=== PATIENT | female | born 1935 | race Caucasian/White ===

== ENCOUNTER 2017-12-14 21:33 | Emergency (ER) | payer MEDICARE ==
[~2017-12-14] VITALS: Ht 149.9 cm; Wt 43.5 kg
[~2017-12-14 21:33] MED LIST: ALL DAY ALLERGY10 M1 PO; ASPIRIN LOW DOS81 MG PO; BENADRYL25 M1 PO; BENZONATATE100 MG PO; CALCIUM CARBON600 M1 PO; CARAFATE1 GM/10 ML PO; CEFUROXIME250 MG PO; CHLORPHENIRAMINE PO; DEXILANT60 MG PO; DOCUSATE SODIU100 MG PO; HYDROCODON-ACE1 EA11 PO; KEPPRA500 MG PO; LEVAQUIN250 MG PO; LEVOXYL88 MCG PEG; LOVENOX60 MG/0.6 SC; MUCINEX DM ER1 EACH PO; NATURAL BALANCE15 ML OU; OYSTER SHELL C1 EACH PO; PANTOPRAZOLE SO40 MG PO; SUCRALFATE1 GM PO; ULTRAM50 MG PO; VITRUM SENIOR1 EAC1; XANAX1 MG PO; Z.0.ALENDRONATE SOD7 PO; Z.0.ALPRAZOLAM1 MG PO; Z.0.FLUTICASONE PRO1 NS; Z.0.LEVOTHYROXINE88 PO; Z.0.LOVASTATIN20 MG PO; Z.0.NEXIUM40 MG PO; Z.0.SUCRALFATE1 GM PO; ZYRTEC10 MG PO; [UNRECOGNIZED DRUG - REMARK] PO
--- OUTSIDE RECORDS SUMMARY | 2017-12-14 21:35 | XMS REPORT ---
[facility] Address Unknown Phone Unavailable Care Team Providers Care Billing Assistant Name Role Phone ALEXIA ANN Unavailable Unavailable Problems This patient has no known problems. Allergies, Adverse Reactions, Alerts This patient has no known allergies or adverse reactions. Medications This patient has no known medications. Results Test Description Test Time Test Comments Text Results Atomic Results Result Comments CT BRAIN WO [place] [address] Patient Name: CHONG MEDEIROS MR #: [id number] : 1935 Age/Sex: 82/F Req #: [id number] Adm Physician: Ordered by: ALEXIA ANN MD Report #: [id number] Location: ER Room/Bed: Procedure: [id number] CT/CT BRAIN WO Exam Date: 05/30/17 Exam Time: 1045 REPORT STATUS: Signed Exam: Head CT without contrast History: Head CT 11/11/2016 Comparison studies: None Technique: Axial images were obtained from the skull base to the vertex. Coronal and sagittal images reconstructed from the axial data. Intravenous contrast: None Findings: Scalp: Midline occipital scalp hematoma with underlying subcutaneous gas presumably related to laceration. No retained hyperdense foreign body identified. Bones: No fractures, blastic or lytic lesions. Brain sulci : Within normal limits for age. Ventricles: Normal in size and configuration. No hydrocephalus. Extra-axial spaces: No masses, no fluid collection. Previous bilateral frontal parietal subdural fluid collections have resolved. Parenchyma: No mass, acute hemorrhage or acute or chronic cortical vascular insults. A few scattered ill-defined and mildly confluent hypodensities in the supratentorial white matter are most compatible with chronic small vessel ischemic changes. Sellar/suprasellar region: No abnormalities. Craniocervical junction: Patent foramen magnum. No Chiari one malformation. Incidental findings: Atherosclerotic calcifications in the carotid siphons. Unchanged nonspecific left sphenoid and posterior left ethmoid opacification. IMPRESSION: 1. Occipital scalp hematoma/ laceration without underlying fracture or hyperdense foreign body. 2. No acute intracranial abnormalities. 3. Previous subdural fluid collections have resolved. 4. No other changes from the previous head CT of 11/21. 5. Mild to moderate chronic microvascular ischemic changes. Signed by: Dr. Ivone George M.D. on 05/30/2017 11:13 AM Dictated By: IVONE GEORGE MD 1113 Transcribed By: LILIAM on 05/30/17 1113 COPY TO: ALEXIA ANN MD
[2017-12-14] MEDS ORDERED: PANTOPRAZOLE 40 MG 10ML VIAL IV STA (22:07)
[2017-12-14] MEDS ORDERED: SODIUM CHLORIDE 0.9% 500ML 500 ML IV ONE (22:15)
[2017-12-14] MEDS ORDERED: ONDANSETRON HCL 4 MG ORAL DISINTEGRATING TAB PO ONE (22:15)
[2017-12-14 22:19] LABS: BASOPHILS % 0.6 % (0.0-1.0); EOSINOPHILS % 0.2 % (0.0-6.0); HEMATOCRIT 42.3 % (34.2-44.1); HEMOGLOBIN 13.5 g/dL (12.0-16.0); LYMPHOCYTES % 14.6 % (18.0-39.1); MEAN CORPUSCULAR HEMOGLOBIN 27.1 pg (28-32); MEAN CORPUSCULAR HGB CONC 31.9 g/dL (31-35); MEAN CORPUSCULAR VOLUME 84.8 fL (81-99); MONOCYTES # (AUTO) 0.3 (0.2-0.8); MONOCYTES % 4.6 % (4.4-11.3); NEUTROPHILS # (AUTO) 5.3 (2.1-6.9); NEUTROPHILS % 79.7 % (38.7-80.0); PLATELET COUNT 209 x10e3/uL (140-360); RED BLOOD COUNT 4.99 x10e6/uL (3.6-5.1); RED CELL DISTRIBUTION WIDTH 14.2 % (11.7-14.4)
[2017-12-14 22:40] LABS: ALANINE AMINOTRANSFERASE 10 IU/L (0-55); ALBUMIN 3.8 g/dL (3.5-5.0); ALBUMIN/GLOBULIN RATIO 0.9 (0.8-2.0); ALKALINE PHOSPHATASE 82 IU/L (40-150); ANION GAP 14.3 mmol/L (8-16); BLOOD UREA NITROGEN 12 mg/dL (7-26); BUN/CREATININE RATIO 18 (6-25); CARBON DIOXIDE 28 mmol/L (22-29); CHLORIDE 101 mmol/L (98-107); CREATINE KINASE 40 IU/L (29-168); CREATININE, SERUM 0.67 mg/dL (0.57-1.11); EST GLOMERULAR FILTRATION RATE > 60 ML/MIN (60-); GLUCOSE 126 mg/dL (74-118); POTASSIUM 4.3 mmol/L (3.5-5.1); SODIUM 139 mmol/L (136-145)
[2017-12-14 23:01] LABS: AMYLASE 67 U/L (25-125); LIPASE 14 U/L (8-78)
--- NOTE | 2017-12-14 23:08 | Diagnostic Imaging Report ---
EXAM: CHEST 2 VIEWS, PA and lateral INDICATION: Stomach problems COMPARISON: PA and lateral view of the chest October 28, 2012 FINDINGS: LINES/TUBES: None LUNGS: Stable emphysematous changes. PLEURA: No effusions or pneumothorax. HEART AND MEDIASTINUM: Normal size and contour. BONES AND SOFT TISSUES: No acute findings. Large hiatal hernia. IMPRESSION: No acute thoracic abnormality. Large hiatal hernia. Signed by: Dr. Randee Haynes M.D. on 12/14/2017 11:05 PM
[2017-12-14 23:58] LABS: BILIRUBIN,URINE NEGATIVE (NEGATIVE); CLARITY,URINE CLEAR (CLEAR); COLOR,URINE YELLOW (YELLOW); KETONES,URINE NEGATIVE (NEGATIVE); LEUKOCYTE ESTERASE ,URINE NEGATIVE (NEGATIVE); NITRITE,URINE NEGATIVE (NEGATIVE); PROTEIN,URINE DIPSTICK NEGATIVE (NEGATIVE); URINE UROBILINOGEN 0.2 mg/dL (0.2 - 1)
[2017-12-15 00:09] LABS: EPITHELIAL CELLS,URINE RARE /LPF; RBC,URINE 0-5 /HPF (0-5); WBC,URINE (MAN) 0-5 /HPF (0-5)
== END 2017-12-15 00:30 | disposition home or self-care (01) ==
LOC: ER 21:33
DX: K21.9 Gastro-esophageal reflux disease without esophagitis (principal); K44.9 Diaphragmatic hernia without obstruction or gangrene; J44.9 Chronic obstructive pulmonary disease, unspecified; R00.0 Tachycardia, unspecified
CPT/HCPCS: 36415; 71046; 80053; 81001; 82150; 82550; 82553; 83690; 84484; 85025; 93005; 99284; J7040

== ENCOUNTER 2018-11-20 05:09 | Inpatient (IN) | payer MEDICARE ==
[~2018-11-20] VITALS: Ht 149.9 cm; Wt 38.1 kg
--- OUTSIDE RECORDS SUMMARY | 2018-11-20 05:13 | XMS REPORT | Continuity of Care Document ---
Author Author [facility] Interface Address Unknown Phone Unavailable Problems Problem Status Onset Date Classification Date Reported Comments Source Medications Medication Details Route Status Patient Instructions Ordering Provider Order Date Source Dexlansoprazole (Dexilant) 60 Mg Cap., 60 Mg Oral Twice A Day Active 11/21/2016 [facility] Diphenhydramine Hcl (Benadryl) 25 Mg Capsule, 25 Mg Oral Four Times Daily Active 11/21/2016 [facility] Hydrocodone Bit/Acetaminophen (Hydrocodon-Acetaminophen 5-325) 1 Each Tablet, 1 Tab Oral As Needed Active 11/21/2016 [facility] Cetirizine Hcl (All Day Allergy Relief) 10 Mg Tablet, 10 Mg Oral Rt Daily Active 08/27/2015 [facility] Lovastatin 20 Mg Tablet, 20 Mg Oral Daily Active 08/27/2015 [facility] Cefuroxime Axetil (Cefuroxime) 250 Mg Tablet, 250 Mg Oral Twice A Day Active 08/15/2014 [facility] Dexlansoprazole (Dexilant) 60 Mg Minesh., 60 Mg Oral Twice A Day Active 08/15/2014 [facility] Sucralfate (Carafate) 1 Gm/10 Ml Oral.susp, 1 Gm Oral Before Meals And At Bedtime Active 08/15/2014 [facility] Alendronate Sodium 70 Mg Tablet, 70 Mg Oral Weekly Active 11/25/2013 [facility] Alprazolam (Xanax*) 1 Mg Tablet, 1 Mg Oral Daily Active 11/25/2013 [facility] Calcium Carbonate 600 Mg Tablet, 600 Mg Oral Twice A Day Active 11/25/2013 [facility] Alprazolam 1 Mg Tablet, 1 Mg Oral Every 8 Hours Active 10/28/2012 [facility] Cetirizine Hcl (Allergy) 10 Mg Tablet, 10 Mg Oral Daily Active 10/28/2012 [facility] Esomeprazole Mag Trihydrate (Nexium) 40 Mg Capsule.dr, 40 Mg Oral Twice A Day Active 10/28/2012 [facility] Fluticasone Propionate 16 Gm [place].susp, 16 Gm Nasal Daily Active 10/28/2012 [facility] Sucralfate 1 Gm Tablet, 2 Gm Oral As Needed Active 10/28/2012 [facility] Alprazolam (Xanax*) 1 Mg Tablet Bedtime Active [facility] Benzonatate 100 Mg Capsule Every 6 Hours as needed for Cough Active [facility] Calcium Carbonate/Vitamin D2 (Oyster Shell Calcium-Vit D Tab) 1 Each Tablet Twice A Day Active [facility] Clorpheniramine Every 8 Hours as needed for Allergy Active [facility] Docusate Sodium 100 Mg Capsule Every 12 Hours as needed for Constipation Active [facility] Enoxaparin Sodium (Lovenox) 60 Mg/0.6 Ml Inj Every 12 Hours Active [facility] Guaifenesin/Dextromethorphan (Mucinex Dm Er 600-30 Mg Tablet) 1 Each Tab.er.12h Every 12 Hours as needed for Nasal Congestion Active [facility] Hypromellose (Natural Balance Tears) 15 Ml Drops Three Times A Day Active [facility] Levetiracetam (Keppra) 500 Mg Tablet Every 12 Hours Active [facility] Levothyroxine Sodium 88 Mcg Tablet Daily Active [facility] Levothyroxine Sodium (Levoxyl) 88 Mcg Tablet Daily Active [facility] Multivitamin W-Minerals/Lutein (Vitrum Senior Tablet) 1 Each Tablet Daily Active [facility] Pantoprazole Sodium (Protonix) 40 Mg Tablet. Twice A Day Active [facility] Sucralfate 1 Gm Tablet Before Meals And At Bedtime Active [facility] Sucralfate (Carafate) 1 Gm/10 Ml Oral.susp Three Times A Day Active [facility] Tramadol Hcl (Ultram) 50 Mg Tablet Every 6 Hours as needed for Pain Active [facility] Allergies, Adverse Reactions, Alerts Substance Category Reaction Severity Reaction type Status Date Reported Comments Source Immunizations Immunization Date Given Site Status Last Updated Comments Source Results Order Name Results Value Reference Range Date Interpretation Comments Source Automated urine sediment leukocyte count by microscopy (number/high power field) Automated urine sediment leukocyte count by microscopy (number/high power field) null 0 - 5 12/14/2017 [facility] Bacteria detection in urine sediment by light microscopy Bacteria detection in urine sediment by light microscopy NONE NONE 12/14/2017 [facility] Epithelial cells detection in urine sediment by light microscopy Epithelial cells detection in urine sediment by light microscopy RARE NONE 12/14/2017 [facility] Erythrocytes detection in urine sediment by light microscopy Erythrocytes detection in urine sediment by light microscopy null 0 - 5 12/14/2017 [facility] Specific gravity of Urine by Test strip Specific gravity of Urine by Test strip 1.015 1.010 - 1.025 12/14/2017 [facility] Urine clarity Urine clarity CLEAR CLEAR 12/14/2017 [facility] Urine color determination Urine color determination YELLOW YELLOW 12/14/2017 [facility] Urine erythrocytes detection Urine erythrocytes detection TRACE NEGATIVE 12/14/2017 [facility] Urine glucose detection Urine glucose detection NEGATIVE NEGATIVE 12/14/2017 [facility] Urine ketones detection by automated test strip Urine ketones detection by automated test strip NEGATIVE NEGATIVE 12/14/2017 [facility] Urine leukocyte esterase detection by dipstick Urine leukocyte esterase detection by dipstick NEGATIVE NEGATIVE 12/14/2017 [facility] Urine nitrite detection Urine nitrite detection NEGATIVE NEGATIVE 12/14/2017 [facility] Urine pH measurement by automated test strip Urine pH measurement by automated test strip 7 5 - 7 12/14/2017 [facility] Urine protein measurement by test strip (mass/volume) Urine protein measurement by test strip (mass/volume) NEGATIVE NEGATIVE 12/14/2017 [facility] Urine total bilirubin measurement (mass/volume) Urine total bilirubin measurement (mass/volume) NEGATIVE NEGATIVE 12/14/2017 [facility] Urine urobilinogen measurement by test strip (mass/volume) Urine urobilinogen measurement by test strip (mass/volume) 0.2 0.2 - 1 12/14/2017 [facility] Automated blood basophil count (count/volume) Automated blood basophil count (count/volume) 0.0 0.0 - 0.1 12/14/2017 [facility] Automated blood basophil count as percentage of total leukocytes Automated blood basophil count as percentage of total leukocytes 0.6 0.0 - 1.0 12/14/2017 [facility] Automated blood eosinophil count Automated blood eosinophil count 0.0 0.0 - 0.4 12/14/2017 [facility] Automated blood eosinophil count as percentage of total leukocytes Automated blood eosinophil count as percentage of total leukocytes 0.2 0.0 - 6.0 12/14/2017 [facility] Automated blood hematocrit (volume fraction) Automated blood hematocrit (volume fraction) 42.3 34.2 - 44.1 12/14/2017 [facility] Automated blood lymphocyte count as percentage ot total leukocytes Automated blood lymphocyte count as percentage ot total leukocytes 14.6 18.0 - 39.1 12/14/2017 [facility] Automated blood monocyte count as percentage of total leukocytes Automated blood monocyte count as percentage of total leukocytes 4.6 4.4 - 11.3 12/14/2017 [facility] Automated blood neutrophil count Automated blood neutrophil count 5.3 2.1 - 6.9 12/14/2017 [facility] Automated blood platelet count (count/volume) Automated blood platelet count (count/volume) 209 140 - 360 12/14/2017 [facility] Automated blood segmented neutrophil count as percentage of total leukocytes Automated blood segmented neutrophil count as percentage of total leukocytes 79.7 38.7 - 80.0 12/14/2017 [facility] Automated erythrocyte mean corpuscular hemoglobin (mass per erythrocyte) Automated erythrocyte mean corpuscular hemoglobin (mass per erythrocyte) 27.1 28 - 32 12/14/2017 [facility] Automated erythrocyte mean corpuscular hemoglobin concentration measurement (mass/volume) Automated erythrocyte mean corpuscular hemoglobin concentration measurement (mass/volume) 31.9 31 - 35 12/14/2017 [facility] Automated erythrocyte mean corpuscular volume Automated erythrocyte mean corpuscular volume 84.8 81 - 99 12/14/2017 [facility] Blood erythrocytes automated count (number/volume) Blood erythrocytes automated count (number/volume) 4.99 3.6 - 5.1 12/14/2017 [facility] Blood hemoglobin measurement (moles/volume) Blood hemoglobin measurement (moles/volume) 13.5 12.0 - 16.0 12/14/2017 [facility] Blood leukocytes automated count (number/volume) Blood leukocytes automated count (number/volume) 6.58 4.8 - 10.8 12/14/2017 [facility] Blood lymphocytes count (number/volume) Blood lymphocytes count (number/volume) 1.0 1.0 - 3.2 12/14/2017 [facility] Blood monocytes automated count (number/volume) Blood monocytes automated count (number/volume) 0.3 0.2 - 0.8 12/14/2017 [facility] Estimated glomerular filtration rate (GFR) determination Estimated glomerular filtration rate (GFR) determination null 60 12/14/2017 [facility] Glucose measurement Glucose measurement 126 74 - 118 12/14/2017 [facility] Plasma globulin measurement (mass/volume) Plasma globulin measurement (mass/volume) 4.2 2.3 - 3.5 12/14/2017 [facility] Serum or plasma alanine aminotransferase measurement (enzymatic activity/volume) Serum or plasma alanine aminotransferase measurement (enzymatic activity/volume) 10 0 - 55 12/14/2017 [facility] Serum or plasma albumin measurement (mass/volume) Serum or plasma albumin measurement (mass/volume) 3.8 3.5 - 5.0 12/14/2017 [facility] Serum or plasma albumin/globulin mass ratio Serum or plasma albumin/globulin mass ratio 0.9 0.8 - 2.0 12/14/2017 [facility] Serum or plasma alkaline phosphatase measurement (enzymatic activity/volume) Serum or plasma alkaline phosphatase measurement (enzymatic activity/volume) 82 40 - 150 12/14/2017 [facility] Serum or plasma amylase measurement (enzymatic activity/volume) Serum or plasma amylase measurement (enzymatic activity/volume) 67 25 - 125 12/14/2017 [facility] Serum or plasma anion gap Serum or plasma anion gap 14.3 8 - 16 12/14/2017 [facility] Serum or plasma calcium measurement (mass/volume) Serum or plasma calcium measurement (mass/volume) 10.0 8.4 - 10.2 12/14/2017 [facility] Serum or plasma carbon dioxide, total measurement (moles/volume) Serum or plasma carbon dioxide, total measurement (moles/volume) 28 22 - 29 12/14/2017 [facility] Serum or plasma chloride measurement (moles/volume) Serum or plasma chloride measurement (moles/volume) 101 98 - 107 12/14/2017 [facility] Serum or plasma creatine kinase MB measurement (mass/volume) Serum or plasma creatine kinase MB measurement (mass/volume) 2.20 0 - 5.0 12/14/2017 [facility] Serum or plasma creatine kinase measurement (enzymatic activity/volume) Serum or plasma creatine kinase measurement (enzymatic activity/volume) 40 29 - 168 12/14/2017 [facility] Serum or plasma creatinine measurement (mass/volume) Serum or plasma creatinine measurement (mass/volume) 0.67 0.57 - 1.11 12/14/2017 [facility] Serum or plasma lipase measurement (enzymatic activity/volume) Serum or plasma lipase measurement (enzymatic activity/volume) 14 8 - 78 12/14/2017 [facility] Serum or plasma potassium measurement (moles/volume) Serum or plasma potassium measurement (moles/volume) 4.3 3.5 - 5.1 12/14/2017 [facility] Serum or plasma protein measurement (mass/volume) Serum or plasma protein measurement (mass/volume) 8.0 6.5 - 8.1 12/14/2017 [facility] Serum or plasma sodium measurement (moles/volume) Serum or plasma sodium measurement (moles/volume) 139 136 - 145 12/14/2017 [facility] Serum or plasma total bilirubin measurement (mass/volume) Serum or plasma total bilirubin measurement (mass/volume) 0.4 0.2 - 1.2 12/14/2017 [facility] Serum or plasma urea nitrogen measurement (mass/volume) Serum or plasma urea nitrogen measurement (mass/volume) 12 7 - 26 12/14/2017 [facility] Serum or plasma urea nitrogen/creatinine mass ratio Serum or plasma urea nitrogen/creatinine mass ratio 18 6 - 25 12/14/2017 [facility] Troponin I measurement by highly sensitive enzyme immunoassay Troponin I measurement by highly sensitive enzyme immunoassay null 0 - 0.300 12/14/2017 [facility] Red Cell Distribution Width 14.2 11.7 - 14.4 12/14/2017 [facility] IM GRANULOCYTES % 0.3 0.0 - 1.0 12/14/2017 [facility] Absolute Immature Granulocyte (auto 0.02 0 - 0.1 12/14/2017 [facility] Aspartate Amino Transf (AST/SGOT) 19 5 - 34 12/14/2017 [facility] Vital Signs Vital Sign Value Date Comments Source Encounters Location Location Details Encounter Type Encounter Number Reason For Visit Attending Provider ADM Date DC Date Status Source Departed Emergency Room [id number] ALEXIA ANN MD 05/30/2017 05/30/2017 [facility] Departed Emergency Room [id number] JYOTHI DE LA FUENTE MD 12/14/2017 12/15/2017 [facility] Procedures Procedure Code Date Perfomer Comments Source X-ray of chest, two views [id number] [facility] [place] of brain without radiopaque contrast [id number] 05/30/2017 [facility]
--- OUTSIDE RECORDS SUMMARY | 2018-11-20 05:13 | XMS REPORT ---
Author [facility] Address Unknown Phone Unavailable Care Team Providers Care Pole Peeler Name Role Phone Irma DE LA FUENTE Unavailable Unavailable ALEXIA ANN Unavailable Unavailable Problems This patient has no known problems. Allergies, Adverse Reactions, Alerts This patient has no known allergies or adverse reactions. Medications This patient has no known medications. Results Test Description Test Time Test Comments Text Results Atomic Results Result Comments CHEST 2 VIEWS [place] [address] Patient Name: CHONG MEDEIROS MR #: [id number] : 1935 Age/Sex: 82/F Req #: [id number] Adm Physician: Ordered by: JYOTHI DE LA FUENTE MD Report #: [id number] Location: ER Room/Bed: Procedure: [id number] DX/CHEST 2 VIEWS Exam Date: 12/14/17 Exam Time: 2228 REPORT STATUS: Signed EXAM: CHEST 2 VIEWS, PA and lateral INDICATION: Stomach problems COMPARISON: PA and lateral view of the chest October 28, 2012 FINDINGS: LINES/TUBES: None LUNGS: Stable emphysematous changes. PLEURA: No effusions or pneumothorax. HEART AND MEDIASTINUM: Normal size and contour. BONES AND SOFT TISSUES: No acute findings. Large hiatal hernia. IMPRESSION: No acute thoracic abnormality. Large hiatal hernia. Signed by: Dr. Caden Haynes M.D. on 12/14/2017 11:05 PM Dictated By: CADEN HAYNES MD 04 Transcribed By: LILIAM on 12/14/172304 COPY TO: JYOTHI DE LA FUENTE MD CT BRAIN WO [place] [id number] [place] [address] Patient Name: CHONG MEDEIROS MR #: [id number] : 1935 Age/Sex: 82/F Req #: [id number] Adm Physician: Ordered by: ALEXIA ANN MD Report #: [id number] Location: ER Room/Bed: Procedure: [id number] CT/CT BRAIN WO Exam Date: 05/30/17 Exam [...] No fractures, blastic or lytic lesions. Brain sulci: Within normal limits for age. Ventricles: Normal [...] the carotid siphons. Unchanged nonspecific left sphenoid an d posterior left ethmoid opacification. IMPRESSION: 1. Occipital scalp hematoma/laceration without underlying fracture or hyperdense foreign body. 2. No acute intracranial abnormalities. 3. Previous subdural fluid collections have resolved. 4. No other changes from the previous head CT of 11/2101/28/2017. 5. Mild to moderate chronic microvascular ischemic changes. Signed by: Dr. Ivone George M.D. on 05/30/2017 11:13 AM Dictated By: IVONE GEORGE MD 1113 Transcribed By: LILIAM on 05/30/17 1113 COPY TO: ALEXIA ANN MD
[2018-11-20] MEDS ORDERED: SODIUM CHLORIDE 0.9% 500ML 500 ML IV ONE (05:30)
[2018-11-20] MEDS ORDERED: DEXILANT60 MG PO (05:49)
[2018-11-20] MEDS ORDERED: AMOXICILLIN875 MG PO (05:49)
[2018-11-20] MEDS ORDERED: SYMBICORT 16010.2 GM INH (05:49)
[2018-11-20] MEDS ORDERED: CHLORHEXIDINE473 ML PO (05:49)
[2018-11-20] MEDS ORDERED: MIDODRINE HCL5 MG PO (05:49)
[2018-11-20] MEDS ORDERED: CHLORPHENIRAMINE4 MG PO (05:49)
[2018-11-20 06:10] LABS: BASOPHILS % 0.6 % (0.0-1.0); EOSINOPHILS % 0.1 % (0.0-6.0); HEMATOCRIT 39.2 % (34.2-44.1); HEMOGLOBIN 12.1 g/dL (12.0-16.0); MEAN CORPUSCULAR HEMOGLOBIN 25.5 pg (28-32); MEAN CORPUSCULAR HGB CONC 30.9 g/dL (31-35); MEAN CORPUSCULAR VOLUME 82.5 fL (81-99); MONOCYTES # (AUTO) 0.6 (0.2-0.8); MONOCYTES % 9.2 % (4.4-11.3); NEUTROPHILS # (AUTO) 5.2 (2.1-6.9); NEUTROPHILS % 75.7 % (38.7-80.0); PLATELET COUNT 222 x10e3/uL (140-360); RED BLOOD COUNT 4.75 x10e6/uL (3.6-5.1); RED CELL DISTRIBUTION WIDTH 16.2 % (11.7-14.4)
[2018-11-20 06:11] LABS: CLARITY,URINE CLEAR (CLEAR); COLOR,URINE YELLOW (YELLOW)
[2018-11-20 06:12] LABS: BILIRUBIN,URINE NEGATIVE (NEGATIVE); KETONES,URINE NEGATIVE (NEGATIVE); LEUKOCYTE ESTERASE ,URINE NEGATIVE (NEGATIVE); NITRITE,URINE NEGATIVE (NEGATIVE); PROTEIN,URINE DIPSTICK NEGATIVE (NEGATIVE); URINE UROBILINOGEN 0.2 mg/dL (0.2 - 1)
[2018-11-20 06:25] LABS: EPITHELIAL CELLS,URINE RARE /LPF; RBC,URINE 0-5 /HPF (0-5); WBC,URINE (MAN) 0-5 /HPF (0-5)
--- NOTE | 2018-11-20 06:39 | Diagnostic Imaging Report ---
EXAMINATION: Head CT without contrast. HISTORY:Dizziness and vertigo. COMPARISON:Report of CT brain from 05/30/2017, images are not available for comparison at the time of interpretation. TECHNIQUE: Multidetector axial images were obtained from the foramen magnum to the vertex without contrast. The images were reconstructed using brain and bone algorithms. Thin section brain images were reformatted into coronal and sagittal planes. Dose modulation, iterative reconstruction, and/or weight based adjustment of the mA/kV was utilized to reduce the radiation dose to as low as reasonably achievable. Intravenous contrast: None IMAGE QUALITY: Suboptimal evaluation due to motion artifacts. FINDINGS: Skull/scalp: No lytic or blastic. lesions. No surgical changes. Parenchyma: Suboptimal evaluation due to motion artifacts, despite the limitation no gross acute hemorrhage, mass or acute major vascular territorial infarct. Nonspecific bilateral frontoparietal patchy white matter hypodensity are likely related to small vessel ischemic changes. Arteries: No density suggestive of thrombosis. Mild atherosclerotic calcification in bilateral carotid siphon. Dural sinuses: No abnormal density suggestive of thrombosis. Ventricles: No hydrocephalus or displacement. Extra-axial spaces: No abnormal density. Brain volume: Normal for age. Craniocervical junction: No mass, Chiari malformation, or basilar invagination. Sella: No mass. Paranasal/mastoid sinuses: Complete opacification of left posterior ethmoid sinus and sphenoid sinus with thickened and sclerotic sinus wall possibly secondary to chronic inflammatory process. IMPRESSION: Suboptimal evaluation due to motion artifacts, despite the limitation no gross acute intracranial abnormality. Mild to moderate supratentorial white matter microvascular ischemic changes. Signed by: Dr. Ying Pink M.D. on 11/20/2018 6:35 AM
[2018-11-20 06:45] LABS: INR 0.9; PROTHROMBIN TIME 12.6 seconds (11.9-14.5)
--- NOTE | 2018-11-20 06:45 | Diagnostic Imaging Report ---
EXAMINATION: CHEST SINGLE (PORTABLE) INDICATION: ^DIZZY COMPARISON: Chest x-ray 12/14/2017 FINDINGS: AP view TUBES and LINES: None. LUNGS: Lungs are moderate inflated, in a patient with emphysema. Scattered multiple calcified granulomas. Bilateral peribronchial cuffing. There is no evidence of pneumonia or pulmonary edema. PLEURA: No pleural effusion or pneumothorax. HEART AND MEDIASTINUM: The cardiomediastinal silhouette is unremarkable. BONES AND SOFT TISSUES: No acute osseous lesion. Soft tissues are unremarkable. UPPER ABDOMEN: No free air under the diaphragm. IMPRESSION: 1. Moderately inflated lungs in a patient with emphysema. 2. Bilateral peribronchial cuffing, which could represent viral etiology or reactive airway disease. Signed by: Dr. Josafat Florez M.D. on 11/20/2018 6:42 AM
[2018-11-20 06:46] LABS: PARTIAL THROMBOPLASTIN TIME 30.2 seconds (23.8-35.5)
--- NOTE | 2018-11-20 06:57 | NUR ---
REPORT TO KVNG RODRIGUEZ
--- NOTE | 2018-11-20 06:58 | NUR ---
RECEIVED REPORT FROM OFF GOING NURSE. PATIENT IN ROOM IN BED. AWAKE AND ALERT. NO S/S OF ACUTE DISTRESS. RESP EVEN AND NONLABORED. PENDING ROOM ASSIGNMENT FOR ADMISSION. BED DOWN CALL LIGHTIN REACH, WILL CONTINUE TO MONITOR.
[2018-11-20 07:00] LABS: ALBUMIN 3.6 g/dL (3.5-5.0); ALBUMIN/GLOBULIN RATIO 1.1 (0.8-2.0); ALKALINE PHOSPHATASE 80 IU/L (40-150); ANION GAP 11.5 mmol/L (8-16); BLOOD UREA NITROGEN 10 mg/dL (7-26); BUN/CREATININE RATIO 16 (6-25); CALCIUM 9.1 mg/dL (8.4-10.2); CARBON DIOXIDE 28 mmol/L (22-29); CHLORIDE 104 mmol/L (98-107); CREATINE KINASE 36 IU/L (29-168); CREATININE, SERUM 0.62 mg/dL (0.57-1.11); EST GLOMERULAR FILTRATION RATE > 60 ML/MIN (60-); GLUCOSE 99 mg/dL (74-118); MAGNESIUM 2.2 MG/DL (1.3-2.1); POTASSIUM 3.5 mmol/L (3.5-5.1); SODIUM 140 mmol/L (136-145)
[2018-11-20] MEDS ORDERED: ONDANSETRON HCL INJ 2MG/ML 2ML 2 MG/ML VIAL IV PRN (07:00)
[2018-11-20] MEDS ORDERED: ALBUTEROL SULF 0.083% NEB SOLN 3 ML NEB NEB PRN (07:00)
[2018-11-20] MEDS ORDERED: IPRATROPIUM BROMIDE 0.02% 2.5 ML NEB NEB PRN (07:00)
[2018-11-20] MEDS ORDERED: SODIUM CHLORIDE 0.9% 1000ML 1,000 ML IV ONE (07:00)
[2018-11-20 07:20] LABS: ALANINE AMINOTRANSFERASE < 6 IU/L (0-55)
[2018-11-20] MEDS: MIDODRINE HCL 5 MG TABLET PO SCH ×2 (08:59→17:00)
[2018-11-20] MEDS ORDERED: ALBUTEROL/IPRATROPIUM 3 ML NEB NEB PRN (09:45)
[2018-11-20] MEDS ORDERED: BENZONATATE 100 MG CAP PO PRN (09:45)
[2018-11-20] MEDS: METHYLPREDNISOLONE SOD SUCC 40 MG/ML VIAL 1ML IV SCH ×2 (10:12→21:00)
[2018-11-20] MEDS: CEFTRIAXONE SOD 1 GM/NS 50 ML 50 ML IV SCH (10:12)
--- NOTE | 2018-11-20 11:16 | NUR ---
PATIENT CALL LIGHT ON, WALKED IN ROOM TO CHECK ON HER. SHE HAD CLIMBED OUT OF BED AND WAS STANDING ON RIGHT SIDE OF BED HOLDING ON TO RALES WITH MONITOR ATTACHMENTS PULLED OFF. PATIENT ORIENTED THEN STATES, "NO ONE HAS TOLD ME WHAT WERE DOING, IF I AM GOING HOME OR BEING ADMITTED". EMOTIONAL SUPPORT GIVEN. ASSISTED PATIENT BACK TO BED AND PLACED BACK ON MONITOR. Elizabeth PETERSON.
--- NOTE | 2018-11-20 11:45 | Diagnostic Imaging Report ---
EXAM: CT Chest without contrast INDICATION: Shortness of breath. COMPARISON: Chest radiograph 11/20/2018. TECHNIQUE: Chest was scanned utilizing a multidetector helical scanner from the lung apex through the level of the adrenal glands without administration of IV contrast. Coronal and sagittal reformations were obtained. Routine protocol was performed. RADIATION DOSE: Total DLP: 171.3 mGy*cm Dose modulation, iterative reconstruction, and/or weight based adjustment of the mA/kV was utilized to reduce the radiation dose to as low as reasonably achievable. COMPLICATIONS: None FINDINGS: LINES/ TUBES: None. LUNGS AND AIRWAYS: There is dependent mucous within the trachea. The central airways appear patent. There is bilateral bronchiectasis. There is mucoid impaction within the distal areas of bronchiectasis. There is diffuse bronchial wall thickening. Mild biapical pleural-parenchymal opacity. There are multifocal areas of tree-in-bud opacities, most pronounced in the lower lobes, right middle lobe, and lingula, and to a lesser extent in the bilateral upper lobes. There is a nodular consolidative subpleural opacity in the right upper lobe, measuring up to 1.2 cm on series 3, image 44. There is a nodular consolidative opacity in the right upper lobe measuring 6 mm on image 42. Scattered other nodular opacities, including a 4 mm opacity in the left upper lobe on image 22 and 5 mm opacity in the right upper lobe on image 32. Calcified granuloma in the right lower lobe. PLEURA: The pleural spaces are clear. HEART AND MEDIASTINUM: The thyroid gland is not well evaluated. There are prominent mediastinal lymph nodes, including a 1.1 cm right peribronchial lymph node and a 1.2 cm left peribronchial lymph node, likely reactive. No cardiomegaly or pericardial effusion. Scattered atherosclerotic changes of the aorta and branch vessels. Scattered coronary atherosclerosis. UPPER ABDOMEN: Limited non-contrast views of the upper abdomen. There is a large sliding hiatal hernia, incompletely evaluated in the absence of oral and IV contrast. Coarse calcification within the right hepatic lobe could reflect calcified granuloma. BONES/SOFT TISSUE: No acute osseous abnormalities. No suspicious lytic or blastic lesions. Diffuse osteopenia. Partially seen retrolisthesis of L1 on L2. IMPRESSION: Diffuse lower lung predominant bronchiectasis with tree-in-bud opacities, suggestive of aspiration or chronic mycobacterial infection. Large hiatal hernia with secretions in the trachea. Recommend clinical correlation for aspiration. Nodular opacities bilaterally measuring up to 1.2 cm in the right upper lobe, which may be infectious. Mild mediastinal lymphadenopathy, likely reactive. Recommend follow-up chest CT in 3 months. Incomplete evaluation of hiatal hernia in the absence of oral and IV contrast. If clinically indicated, EGD may be considered. Signed by: Dr. Geeta Hayden MD on 11/20/2018 11:42 AM
[2018-11-20] MEDS: AZITHROMYCIN 250MG/NS 100 ML 100 ML IV SCH (12:04)
[2018-11-20 14:30] VITALS: BP 136/92
[2018-11-20 15:00] VITALS: BP 136/92
[2018-11-20] MEDS: BENZONATATE 100 MG CAP PO SCH ×2 (15:00→21:00)
[2018-11-20 15:42] LABS: CREATINE KINASE MB 1.6 ng/mL (0-5.0)
[2018-11-20 16:00] VITALS: BP 136/92
--- NOTE | 2018-11-20 16:13 | History and Physical ---
CHIEF COMPLAINT: Dizziness, generalized weakness, cough for the past week, productive cough with low-grade fever. HISTORY OF PRESENT ILLNESS: The patient is a very pleasant 83-year-old female with advanced COPD. The patient came to the hospital with increasing shortness of breath and cough for the past week or so, failed outpatient treatment. The patient at baseline requires occasional oxygen support. She is using a walker for ambulate. The patient is stable otherwise now. She is comfortable. She is having a chest x-ray that was done showed the possible pneumonia with bilateral peribronchial cuffing associated with moderately inflated lung with emphysema. The patient is pending for further workup and she is admitted. IV antibiotics started, IV steroids, and cough nebulizer. PAST MEDICAL HISTORY: Advanced COPD, hypertension, hypothyroidism, reflux, osteoarthritis, depression, and anxiety disorder. SOCIAL HISTORY: The patient was an ex-smoker. She does not use alcohol. No recreational drugs. ALLERGIES: NO KNOWN ALLERGIES. HOME MEDICATIONS: Failed outpatient treatment with Augmentin, Symbicort, Nexplanon, levothyroxine, midodrine, Carafate, and tramadol. PHYSICAL EXAMINATION: VITAL SIGNS: Temperature is 98, blood pressure 141/90, pulse rate 101, and respirations 22. GENERAL: The patient is not in acute distress. She is coughing. HEENT: Normocephalic, atraumatic. Anicteric. NECK: Supple grossly. PULMONARY: Diminished breath sounds bilaterally with coarse and rhonchi. Diminished breath sounds at bases. CARDIOVASCULAR: Tachycardia. ABDOMEN: Soft, cachexia. EXTREMITIES: No cyanosis or edema. NEUROLOGIC: No gross focal deficit. LABORATORY DATA: WBC 6.9, hemoglobin 12, hematocrit 39, and platelets 222. Chemistry; sodium 140, potassium 3.5, chloride 104, bicarb 20, BUN is 10, creatinine is 0.6, and glucose is 99. Chest x-ray as mentioned above. IMPRESSION: 1. Acute exacerbation of chronic obstructive pulmonary disease. 2. Acute bronchitis with possible pneumonia, community acquired. 3. Oxygen required with acute hypoxia. 4. Generalized medical decline. PLAN: Continue with nebulizer treatment. Antibiotics. Cough medication. PT/OT. Consultation with Dr. Aly Lake, her financial data analyst. CT of the chest without contrast. We will monitor the patient closely. MD CHAPIN Garces/MANDO /[id number]
--- NOTE | 2018-11-20 17:00 | NUR ---
Patient midodrine held blood pressure 136/92
[2018-11-20 19:45] VITALS: BP 131/80
[2018-11-20] MEDS: ALBUTEROL/IPRATROPIUM 3 ML NEB NEB SCH (20:33)
[2018-11-20] MEDS ORDERED: ONDANSETRON HCL 4 MG ORAL DISINTEGRATING TAB PO PRN (22:00)
--- NOTE | 2018-11-20 22:12 | NUR ---
PATIENT ASSISTED TO THE BEDSIDE COMMODE, SHE'S VERY UNSTEADY ON HER GAIT. SHE'S NOW BACK IN BED WITHOUT RESPIRATORY DISTRESS AND SHE DENIES PAIN. BED ALARM ON, CALL LIGHT WITHIN EASY REACH.
--- NOTE | 2018-11-20 23:00 | NUR ---
PATIENT TRANSFERRED TO #115, REPORT WAS CALLED AND GIVEN TO THE RECEIVING NURSE. ALL PERSONAL ITEMS TAKE ALONG WITH THE PATIENT, CONDITION STABLE WITHOUT ACUTE DISTRESS.
--- NOTE | 2018-11-20 23:00 | NUR ---
PT ARRIVED TO ROOM 115 BY WHEELCHAIR. PT IS AAOX3, RR EVEN AND NON-LABORED, ON RA. NO S/SX OF DISTRESS NOTED. PT ASSISTED TO HOSPITAL BED. PT REPORTS DIZZINESS WHEN STANDING. LEFT PT LAYING SEMI FOWLERS IN BED, BED IN LOW LOCKED POSITION, SIDE RAILS UPX2, CALL LIGHT AND PHONE WITHIN REACH.
[2018-11-21] VITALS (9 sets, daily range): BP systolic 113–155; BP diastolic 62–82
[2018-11-21] MEDS: ALBUTEROL/IPRATROPIUM 3 ML NEB NEB SCH ×2 (00:23→07:00)
[2018-11-21 03:15] LABS: CREATINE KINASE MB 1.7 ng/mL (0-5.0)
[2018-11-21 06:36] LABS: BASOPHILS % 0.1 % (0.0-1.0); EOSINOPHILS # (AUTO) 0.1 (0.0-0.4); EOSINOPHILS % 1.7 % (0.0-6.0); HEMATOCRIT 37.7 % (34.2-44.1); HEMOGLOBIN 11.5 g/dL (12.0-16.0); LYMPHOCYTES # (AUTO) 1.2 (1.0-3.2); MEAN CORPUSCULAR HEMOGLOBIN 25.2 pg (28-32); MEAN CORPUSCULAR HGB CONC 30.5 g/dL (31-35); MEAN CORPUSCULAR VOLUME 82.7 fL (81-99); MONOCYTES # (AUTO) 0.5 (0.2-0.8); MONOCYTES % 5.9 % (4.4-11.3); NEUTROPHILS # (AUTO) 5.9 (2.1-6.9); NEUTROPHILS % 76.9 % (38.7-80.0); PLATELET COUNT 238 x10e3/uL (140-360); RED BLOOD COUNT 4.56 x10e6/uL (3.6-5.1); RED CELL DISTRIBUTION WIDTH 16.4 % (11.7-14.4)
[2018-11-21 06:49] LABS: ALBUMIN 3.3 g/dL (3.5-5.0); ALBUMIN/GLOBULIN RATIO 0.9 (0.8-2.0); ALKALINE PHOSPHATASE 73 IU/L (40-150); BLOOD UREA NITROGEN 13 mg/dL (7-26); BUN/CREATININE RATIO 21 (6-25); CALCIUM 9.3 mg/dL (8.4-10.2); CARBON DIOXIDE 27 mmol/L (22-29); CHLORIDE 105 mmol/L (98-107); CREATININE, SERUM 0.62 mg/dL (0.57-1.11); EST GLOMERULAR FILTRATION RATE > 60 ML/MIN (60-); GLUCOSE 135 mg/dL (74-118); SODIUM 138 mmol/L (136-145)
[2018-11-21 06:58] LABS: ALANINE AMINOTRANSFERASE < 6 IU/L (0-55)
--- NOTE | 2018-11-21 07:00 | NUR ---
BEDSIDE ROUNDS COMPLETE NO DISTRESS NOTED, UPDATED ON POC VOICED UNDERSTANDING, DENIES PAIN AT THIS TIME, CALL LIGHT IN REACH WILL CONTINUE TO MONITOR
[2018-11-21 08:07] LABS: ANION GAP 11.2 mmol/L (8-16)
[2018-11-21 08:11] LABS: POTASSIUM 5.2 mmol/L (3.5-5.1)
[2018-11-21] MEDS: MIDODRINE HCL 5 MG TABLET PO SCH ×2 (09:00→16:28)
[2018-11-21] MEDS: CEFTRIAXONE SOD 1 GM/NS 50 ML 50 ML IV SCH (10:00)
[2018-11-21] MEDS: METHYLPREDNISOLONE SOD SUCC 40 MG/ML VIAL 1ML IV SCH ×2 (10:00→20:15)
[2018-11-21] MEDS: BENZONATATE 100 MG CAP PO SCH ×3 (10:00→20:15)
--- NOTE | 2018-11-21 10:00 | NUR ---
ASSESSMENT COMPLETE NO DISTRESS NOTED UPDATED ON POC VOICED UNDERSTANDING, DENIES PAIN AT THIS TIME, CALL LIGHT IN REACH WILL CONTINUE TO MONITOR
[2018-11-21] MEDS ORDERED: ALBUTEROL SULF 0.083% NEB SOLN 3 ML NEB NEB PRN (10:15)
[2018-11-21] MEDS: MECLIZINE HCL 12.5 MG TAB PO SCH (11:21)
[2018-11-21] MEDS: SUCRALFATE 1 GM/10 ML SUSP NG SCH ×3 (11:21→20:15)
[2018-11-21] MEDS: TRAMADOL HCL 50 MG TAB PO PRN ×3 (14:31→21:07)
--- NOTE | 2018-11-21 15:52 | NUR ---
Nutrition Intervention Note RD Recommendation(s) for Physician: Continue diet as ordered Plan of Care: RD following, monitoring for tolerance and adequacy Nutrition reason for involvement: BMI 17 RD Assessment Initial encounter with patient. Pt states that she has an Ok appetite, but occasionally has stomach problems due to GERD. Pt avoids spicy foods. Pt denies any nausea, vomiting or diarrhea. Pt noted to have loss of lean body mass in upper and lower extremities, prominent clavicle, acromion process, temporal wasting, hollow orbitals. Pt does not like Ensure supplement. Offered, but pt refused. Principal Problems/Diagnoses:dizziness, weakness PMH:COPD, GERD, HTN, Hypothyroidism, IVF: None GI:soft Skin: buttocks wound Labs: (11/21/2018) lab results reviewed Meds: (08/23/2018) MAR reviewed Malnutrition Evaluation (11/21/2018) The patient meets criteria for unspecified SEVERE protein-calorie malnutrition. Energy intake: <50% of estimated energy requirements for >1 month Weight loss: >10% in 6 months (Chronic) Fat loss: Severe, Muscle loss:Severe, Supporting Evidence: Fluid accumulation: none Functional Status: No change Diet Education Needs Assessment: Diet education not indicated. Ht:59 Wt:84lbs BMI:17kg/m2 IBW:95lbs Estimated Nutritional Needs: 1145 - 1336 kcals at 30-35 kcals/kg/bw 38-57g of protein at 1-1.5g/kg/bw Nutrition Prescription (Diet Order): Cardiac diet Food Allergies:No known food allergies Diet Adequacy: Meeting calorie needs, Meeting protein needs, Meeting fluid needs Tolerance: Tolerating PO Nutrition Care Level:low Nutrition Diagnosis:Malnutrition related to chronic illness as evidenced by loss of lean body mass and involuntary wt loss Goal:Patient will meet 75-100% of estimated needs by follow up Progress: Progressing Interventions: General healthful diet Monitoring/Evaluation: Total energy intake, Total protein intake, Weight change. Camron Zarco RD, LD, CNSC
[2018-11-21] MEDS: DEXILANT 60 MG PO SCH (16:16)
[2018-11-21] MEDS: CHLORHEXIDINE GLUCONATE 0.12% SOLN 473 ML BTL MT SCH (16:28)
--- NOTE | 2018-11-21 17:49 | Consultation ---
DATE OF CONSULTATION: 11/21/2018 Pulmonary Consultation Patient of Dr. Morris and Dr. Francois, well known to Pulmonary service. HISTORY OF PRESENT ILLNESS: An 83-year-old woman living in [facility] with a history of chronic bronchiectasis, admitted with weakness and dizziness, history of gastroesophageal reflux, history of vertigo, chronic cough productive of ugly green sputum. ALLERGIES: QUESTIONABLE ALLERGY TO KEFLEX. ALLERGY TO REMERON. MEDICATIONS: Include: 1. Xanax. 2. Dexilant. 3. Atrovent. 4. Augmentin. 5. Tessalon. 6. Carafate. 7. Symbicort. 8. Levoxyl. 9. Flovent. PAST SURGICAL HISTORY: She has had , left hip repair with prosthesis, bladder surgery. SOCIAL HISTORY: middle school math teacher. Nonsmoker. FAMILY HISTORY: Positive for coronary artery disease. PHYSICAL EXAMINATION: GENERAL: Somewhat cachectic white female, in no acute distress, looking her stated age, taking all medicines. She does have a history of gastroesophageal reflux and chronic hiatal hernia. VITAL SIGNS: Temperature 97, pulse 79, and blood pressure 115/72. HEENT: Some temporal wasting. LUNGS: Bilateral rales. HEART: Regular rhythm. ABDOMEN: Nontender and scaphoid. EXTREMITIES: Nonedematous. IMPRESSION AND PLAN: Vertigo and bronchiectasis. Continue Rocephin. Check sputum, rule out MAC, physical therapy, orthostatic vital signs. Thank you for this kind referral. MD VASU Puga/MANDO /[id number]
--- NOTE | 2018-11-21 18:46 | NUR ---
PT C/O TOOTH ACHE, PAGED DR ASHTON AWAITING CALL BACK
[2018-11-21] MEDS: BUDESONIDE/FORMOTEROL FUMARATE 80/4.5MCG 6.9 GM INH AEROSOL IH SCH (19:00)
--- NOTE | 2018-11-21 19:00 | NUR ---
WALKING ROUNDS PERFORMED, RECEIVED PT LAYING FOWLERS IN BED, AAOX3, RR EVEN AND NON-LABORED, ON RA. NO S/SX OF DISTRESS NOTED. LEFT PT LAYING SEMI FOWLERS IN BED, BED IN LOW LOCKED POSITION, SIDE RAILS UPX2, CALL LIGHT AND PHONE WITHIN REACH.
[2018-11-21] MEDS: AZITHROMYCIN 250MG/NS 100 ML 100 ML IV SCH (19:29)
[2018-11-21] MEDS: ALPRAZOLAM 0.25 MG TAB PO PRN (22:02)
[2018-11-22] VITALS (8 sets, daily range): BP systolic 130–159; BP diastolic 67–81
[2018-11-22] MEDS: LEVOTHYROXINE SODIUM 88 MCG TAB PO SCH (05:16)
--- NOTE | 2018-11-22 07:30 | NUR ---
BEDSIDE ROUNDS COMPLETE NO DISTRESS NOTED, UPDATED ON POC VOICED UNDERSTANDING, DENIES PAIN AT THIS TIME, CALL LIGHT IN REACH WILL CONTINUE TO MONITOR
[2018-11-22] MEDS: FLUTICASONE PROPIONATE NASAL SPRAY NS SCH (08:16)
[2018-11-22] MEDS: SUCRALFATE 1 GM/10 ML SUSP NG SCH ×4 (08:16→19:40)
[2018-11-22] MEDS: BENZONATATE 100 MG CAP PO SCH ×3 (08:16→19:40)
[2018-11-22] MEDS: AZITHROMYCIN 250 MG TAB PO SCH (08:16)
[2018-11-22] MEDS: METHYLPREDNISOLONE SOD SUCC 40 MG/ML VIAL 1ML IV SCH ×2 (08:16→19:40)
[2018-11-22] MEDS: CHLORHEXIDINE GLUCONATE 0.12% SOLN 473 ML BTL MT SCH ×2 (08:16→17:20)
[2018-11-22] MEDS: MECLIZINE HCL 12.5 MG TAB PO SCH ×2 (08:16→14:15)
[2018-11-22] MEDS: MIDODRINE HCL 5 MG TABLET PO SCH ×2 (08:17→17:20)
[2018-11-22] MEDS: CEFTRIAXONE SOD 1 GM/NS 50 ML 50 ML IV SCH (08:17)
[2018-11-22] MEDS: DEXILANT 60 MG PO SCH (08:17)
[2018-11-22] MEDS: BUDESONIDE/FORMOTEROL FUMARATE 80/4.5MCG 6.9 GM INH AEROSOL IH SCH ×2 (09:33→19:00)
[2018-11-22] MEDS: TRAMADOL HCL 50 MG TAB PO PRN ×2 (18:02→23:32)
[2018-11-22] MEDS: ALPRAZOLAM 0.25 MG TAB PO PRN (19:40)
[2018-11-23] VITALS: BP 159/71
[2018-11-23 04:00] VITALS: BP 135/73
[2018-11-23 05:57] LABS: BASOPHILS % 0.1 % (0.0-1.0); HEMATOCRIT 38.1 % (34.2-44.1); HEMOGLOBIN 11.7 g/dL (12.0-16.0); LYMPHOCYTES # (AUTO) 1.3 (1.0-3.2); LYMPHOCYTES % 14.1 % (18.0-39.1); MEAN CORPUSCULAR HEMOGLOBIN 25.6 pg (28-32); MEAN CORPUSCULAR HGB CONC 30.7 g/dL (31-35); MEAN CORPUSCULAR VOLUME 83.4 fL (81-99); MONOCYTES # (AUTO) 0.7 (0.2-0.8); MONOCYTES % 7.5 % (4.4-11.3); NEUTROPHILS % 77.7 % (38.7-80.0); PLATELET COUNT 234 x10e3/uL (140-360); RED BLOOD COUNT 4.57 x10e6/uL (3.6-5.1); RED CELL DISTRIBUTION WIDTH 16.5 % (11.7-14.4)
[2018-11-23] MEDS: TRAMADOL HCL 50 MG TAB PO PRN (06:14)
[2018-11-23] MEDS: LEVOTHYROXINE SODIUM 88 MCG TAB PO SCH (06:14)
[2018-11-23 06:21] LABS: ANION GAP 11.2 mmol/L (8-16); BLOOD UREA NITROGEN 17 mg/dL (7-26); BUN/CREATININE RATIO 27 (6-25); CALCIUM 9.3 mg/dL (8.4-10.2); CARBON DIOXIDE 29 mmol/L (22-29); CHLORIDE 101 mmol/L (98-107); CREATININE, SERUM 0.62 mg/dL (0.57-1.11); EST GLOMERULAR FILTRATION RATE > 60 ML/MIN (60-); GLUCOSE 119 mg/dL (74-118); POTASSIUM 4.2 mmol/L (3.5-5.1); SODIUM 137 mmol/L (136-145)
--- NOTE | 2018-11-23 07:31 | NUR ---
Received patient in report this morning. Patient is resting in bed. No S&S of distress noted at this time. Bed locked in lowest position. Call light in reach.
[2018-11-23] MEDS: BUDESONIDE/FORMOTEROL FUMARATE 80/4.5MCG 6.9 GM INH AEROSOL IH SCH (07:45)
[2018-11-23 08:36] VITALS: BP 141/64
[2018-11-23] MEDS: SUCRALFATE 1 GM/10 ML SUSP NG SCH ×2 (09:01→12:55)
[2018-11-23] MEDS: MECLIZINE HCL 12.5 MG TAB PO SCH ×2 (09:01→12:55)
[2018-11-23] MEDS: BENZONATATE 100 MG CAP PO SCH (09:02)
[2018-11-23] MEDS: FLUTICASONE PROPIONATE NASAL SPRAY NS SCH (09:02)
[2018-11-23] MEDS: MIDODRINE HCL 5 MG TABLET PO SCH (09:02)
[2018-11-23] MEDS: AZITHROMYCIN 250 MG TAB PO SCH (09:02)
[2018-11-23] MEDS: CHLORHEXIDINE GLUCONATE 0.12% SOLN 473 ML BTL MT SCH (09:07)
[2018-11-23] MEDS: METHYLPREDNISOLONE SOD SUCC 40 MG/ML VIAL 1ML IV SCH (09:07)
[2018-11-23] MEDS: DEXILANT 60 MG PO SCH (09:10)
--- NOTE | 2018-11-23 10:25 | NUR ---
IMM EXPLAINED, SIGNED BY PT AND ON CHART COPY TO PT
--- NOTE | 2018-11-23 10:27 | NUR ---
WOUND CARE CONSULTATION: INITIAL EVALUATION Patient admitted from dizziness and weakness. DX: COPD exacerbation, Bronchitis, PNA, Hypoxia WC Consulted for Left Buttocks Ulcer and Sacral Redness evaluation and recommendation PATIENT VISIT: Pleasant 83 year old female. AAOX3 Labs Stable VSS LOS 2 days Florian Score 19 Alternating Pressure Air Mattress Conservative PUP Active Overhead trapeze in place Walker at bedside. Patient able to turn self. Diapered with pullup. Complains of some soreness to sacral area. Blanchable Redness to Sacrum. Left Gluteal presents with stable scab. Annular shape measuring 1x1cm. No depth. Periwound [place]. Appears stable and healing. Bilateral heels with blanchable redness, appears normal to patient skin type, even distribution. Denies pain or discomfort to area, No Edema. IMPRESSION: 1. Sacral - Blanchable Erythema 2. Left Buttocks - Abrasion/ Laceration- Scabbed and Stable. RECOMMENDATION: 1. Sacral Area - Blanchable Erythema & Left Buttocks Abrasion: - Wash area with Mild Soap And Water then Pat Dry Thoroughly - Apply [place] Cream and cover with Allevyn Foam Dressing q12H and PRN Soiling. 2. Encourage Turning and Repositioning every 2 hours. 3. Continue Conservative PUP. Thank you for consulting with Wound Care. Addendum: 11/23/18 at 1037 by Tyrone Russo RN Amended: Links added.
[2018-11-23] MEDS ORDERED: ZINC OXIDE / BALSAM PERU 30 GM TUBE TOP SCH (10:45)
[2018-11-23] MEDS: CEFTRIAXONE SOD 1 GM/NS 50 ML 50 ML IV SCH (11:00)
--- NOTE | 2018-11-23 11:00 | NUR ---
Patient is A&Ox3. Patient used walker to walk around room and gather her personal items. Patient was steady, but slow to move. Non-skid footwear in place. Lung sounds clear. Bowel sounds active. Skin intact except small scabbed area to sacrum, wound care assessed not pressure related. No edema noted. R forearm 20g IV asymptomatic, intact, and patent. Tele monitor removed due to discharge orders and patient request. Will continue to monitor.
[2018-11-23 11:01] VITALS: BP 141/64
[2018-11-23 12:25] VITALS: BP 143/96
[2018-11-23] MEDS ORDERED: PREDNISONE5 MG PO (13:12)
[2018-11-23] MEDS ORDERED: DOXYCYCLINE HY100 MG PO (13:13)
--- NOTE | 2018-11-23 13:20 | NUR ---
R forearm 20g IV removed at this time. Catheter tip intact. Pressure dressing applied.
--- NOTE | 2018-11-23 13:37 | NUR ---
Patient discharged at this time. Accompanied by staff via wheelchair to car. Written discharge instructions given. Continue home meds, stop amoxacillin. New prescriptions explained, including prednisone, doxycycline, duoneb, and nebulizer. F/U with Dr Francois in 1-2 weeks. Patient and family member verbalized understanding.
--- NOTE | 2018-11-24 04:30 | Discharge Summary ---
CONSULTING PHYSICIAN: Aly Lake MD. FINAL DIAGNOSES: 1. Acute exacerbation of pulmonary fibrosis. 2. Atypical pneumonia. 3. Respiratory insufficiency. 4. Opvxg-[id number] bronchiectasis. 5. Large hiatal hernia. SUMMARY: The patient is a pleasant [id number]-female with questionable pulmonary fibrosis versus bronchiectasis, predominantly in the lung. The patient apparently came in with respiratory insufficiency, bilateral lung wheezing. The patient was given medication. She is doing much better. She was on steroids, nebulizer treatment, antibiotics. The patient's problem is now much improved. She did not have any leukocytosis. She has been on atypical treatment. She underwent CT scan of the chest showing chronic bronchiectasis with acute exacerbation. There is possible chronic mycobacterial infection, AFB and sputum obtained. She had a large hiatal hernia. She is on PPI. She is also found to have nodular opacity up to 1.2 cm in the right upper lobe that may be infectious. Mild mediastinal lymphadenopathy likely reactive as well. Recommend for the patient to follow up on CT scan in approximately 3 months. The patient is stable. Her lung examination is much improved. She will go home today. Discharge medication reconciliation done. She is already on Dexilant. Doxycycline 100 mg twice a day for 7 days, prednisone 10 mg daily for 5 days, then 5 mg daily. DuoNeb every 4 hours as needed. The patient is stable, discharged home today. Follow up with me next week and follow up with Dr. Lake in approximately 1 to 2 weeks. MD CHAPIN Garces/DAMIANL /[id number]
== END 2018-11-23 14:04 | disposition home or self-care (01) | DRG 177 ==
LOC: ER 05:09 → ERHOLD 07:00 → OBSVTOIN 09:49 → IMCU 14:30 → MED/SURG 22:59
PROVIDERS: ADMIT Internal Medicine; ATTEND Internal Medicine
DX: J69.0 Pneumonitis due to inhalation of food and vomit (principal); E43 Unspecified severe protein-calorie malnutrition; J44.1 Chronic obstructive pulmonary disease with (acute) exacerbation; Z68.1 Body mass index [BMI] 19.9 or less, adult; J20.9 Acute bronchitis, unspecified; R09.02 Hypoxemia; R42 Dizziness and giddiness; I10 Essential (primary) hypertension; E03.9 Hypothyroidism, unspecified; K21.9 Gastro-esophageal reflux disease without esophagitis; F41.9 Anxiety disorder, unspecified; F32.9 Major depressive disorder, single episode, unspecified; M19.90 Unspecified osteoarthritis, unspecified site; Z87.891 Personal history of nicotine dependence; Z82.49 Family history of ischemic heart disease and other diseases of the circulatory system; J84.10 Pulmonary fibrosis, unspecified; K44.9 Diaphragmatic hernia without obstruction or gangrene; R06.89 Other abnormalities of breathing
CPT/HCPCS: 36415; 70450; 71045; 71250; 80048; 80053; 81001; 82550; 82553; 83735; 83880; 84484; 85025; 85610; 85730; 87070; 87086; 87116; 87186; 87205; 87206; 93005; 94640; 94664; 94667; 94668; 96376; 97139; 99285; J0696; J2920; J7030; J7040